=== PATIENT | female | born 1960 | race Caucasian/White ===

== ENCOUNTER → 2017-04-09 | Outpatient (CLI) | payer BC ==
[~2017-04-09] MED LIST: ATOR-22 PO; CARV6.252 PO; DIGO30TA; SACU1TAB7; SPIR25TA PO; TORS5TAB10 PO
--- NOTE | 2017-04-09 16:01 | MAMMOGRAPHY REPORT ---
BILATERAL DIGITAL SCREENING MAMMOGRAM TOMOSYNTHESIS WITH CAD: 04/09/2017 CLINICAL HISTORY: Routine screening. Patient has no complaints. TECHNIQUE: Breast tomosynthesis in addition to standard 2D mammography was performed. Current study was also evaluated with a Computer Aided Detection (CAD) system. COMPARISON: Comparison is made to exams dated: 03/27/2016 mammogram, 07/17/2015 mammogram, 12/21/2014 m ammogram, 11/04/2013 mammogram, 10/12/2012 mammogram, and 08/13/2011 mammogram - [facility]. BREAST COMPOSITION: The tissue of both breasts is almost entirely fatty. FINDINGS: No suspicious masses, calcifications, or areas of architectural distortion are noted in ei ther breast. There has been no significant interval change compared to prior exams. There are stable postsurgical changes in the right breast from prior lumpectomy; linear scar markers denote scars on the right breast. Bilateral benign-appearing calcifications are stable, including grouped calcificat ions in the left upper outer quadrant which are stable dating back to at least the 2012 exam. A pace maker overlies the left pectoralis muscle. IMPRESSION: ACR BI-RADS CATEGORY 2: BENIGN There is no mammographic evidence of malignancy. A 1 year screening mammogram is recommended. The pa tient will receive written notification of the results. Approximately 10% of breast cancers are not detected with mammography. A negative mammographic report should not delay biopsy if a clinically suggestive mass is present. Iraida Woods M.D. /:04/09/2017 10:18:32 Resident Manager: Deidra LAWSON(Ondina)(M), [facility] letter sent: Normal 1/2 BI-RADS Code: ACR BI-RADS Category 2: Benign
== END | disposition home or self-care (01) ==
LOC: C.MAMM 08:06
PROVIDERS: ATTEND Internal Medicine Hematology
DX: Z12.31 Encounter for screening mammogram for malignant neoplasm of breast (principal); Z85.3 Personal history of malignant neoplasm of breast

== ENCOUNTER → 2017-07-08 | Day surgery (SDC) | payer BC ==
[2017-07-02 08:55] VITALS: Ht 167.6 cm; Wt 87.7 kg
[~2017-07-08] VITALS: Ht 167.6 cm; Wt 87.7 kg
[~2017-07-08] MED LIST changes: +CARV12.52 PO; -CARV6.252 PO; -DIGO30TA; +DIGO30TA PO; +DOXY200C PO; -SACU1TAB7; +SACU1TAB7 PO; +SODIUM CHLORIDE 0.9% 500ML 500 ML IV ONE
--- NOTE | 2017-07-08 10:08 | Endo History and Physical ---
History & Physical Date of Service: Jul 08, 2017. Chief Complaint: HX COLON POLYP Referring Physician: DR. COHN History of Present Illness patient with history of large colon polyp Past Surgical History Hx Cardiac Surgery: Yes (CARDIAC CATH-NO STENTS) Hx Internal Defibrillator: Yes (MEDTRONIC) Hx Pacemaker: Yes (MEDTRONIC) Hx Abdominal Surgery: No Hx of Implantable Prosthesis: No Hx Post-Op Nausea and Vomiting: No Hx Cancer Surgery: Yes (RT PARTIAL MASECTOMY WITH LYMPH NODE BIOPSY) Hx Thoracic Surgery: No Hx Orthopedic: No Hx Urinary Tract Surgery: No Family History None Social History Smoking Status: Never Smoker Hx Substance Use: No Hx Alcohol Use: Yes (OCCASIONALLY (2-3 GLASSES OF WINE WEEKLY)) Allergies Coded Allergies: No Known Allergies (Verified , 07/08/17) Current Medications Reported Home Medications Medications Dose Route/Sig Max Daily Dose Days Date Category Dose Instructions Doxycycline (Doxycycline (Rosacea)) 40 Mg Cap 20 Mg PO BID 07/02/17 Reported FINISHING 07/07/17 Entresto 49-51 mg (Sacubitril-Valsartan) 1 Tab Tab 1 Tab PO BID 07/02/17 Reported Coreg (Carvedilol) 12.5 Mg Tab 12.5 Mg PO BID 07/02/17 Reported Aldactone (Spironolactone) 25 Mg Tab 12.5 Mg PO QAM 01/29/17 Reported Digitek (Digoxin) 0.125 Mg Tab 1 Tab PO DAILY AT LUNCH 01/29/17 Reported Torsemide 5 Mg Tab 5 Mg PO 2X/WEEK 04/24/16 Reported Lipitor (Atorvastatin Calcium) 20 Mg Tab 20 Mg PO HS 08/28/10 Reported Vital Signs Weight (Kilograms): 87.73 Height (Feet): 5 Height (Inches): 6 Date Time Temp Pulse Resp B/P (MAP) Pulse Ox O2 Delivery O2 Flow Rate FiO2 07/08/17 10:03 36.5 81 16 112/61 (78) 94 Room Air Physical Exam General Appearance: no apparent distress Respiratory/Chest: Auscultation: breath sounds normal Cardiovascular: Heart Auscultation: RRR Abdomen: Inspection & Palpation: soft Liver: non-tender Assessment and Plan stable for colonoscopy
--- NOTE | 2017-07-08 10:58 | GI REPORT ---
Procedure Date: 07/08/2017 10:09 AM Procedure: Colonoscopy Indications: High risk colon cancer surveillance: Personal history of adenoma (10 mm or greater in size) Medicines: See the Anesthesia note for documentation of the administered medications Complications: No immediate complications. Estimated Blood Loss: Estimated blood loss was minimal. Procedure: Pre-Anesthesia Assessment: - Prior to the procedure, a History and Physical was performed, and patient medications, allergies and sensitivities were reviewed. The patient's tolerance of previous anesthesia was reviewed. - The risks and benefits of the procedure and the sedation options and risks were discussed with the patient. All questions were answered and informed consent was obtained. - Patient identification and proposed procedure were verified prior to the procedure by the physician and the nurse. The procedure was verified in the pre-procedure area. - Pre-procedure physical examination revealed no contraindications to sedation. - After reviewing the risks and benefits, the patient was deemed in satisfactory condition to undergo the procedure. After I obtained informed consent, the scope was passed under direct vision. Throughout the procedure, the patient's blood pressure, pulse, and oxygen saturations were monitored continuously. The scope was introduced through the anus and advanced to the terminal ileum, with identification of the appendiceal orifice and IC valve. The colonoscopy was performed without difficulty. The patient tolerated the procedure well. The quality of the bowel preparation was good. Findings: The perianal and digital rectal examinations were normal. The terminal ileum appeared normal. A 6 mm polyp was found in the ascending colon. The polyp was sessile. The polyp was removed with a cold snare. Resection and retrieval were complete. Verification of patient identification for the specimen was done by the physician and nurse using the patient's name and medical record number. Estimated blood loss was minimal. A 4 mm polyp was found at the hepatic flexure. The polyp was sessile. The polyp was removed with a cold snare. Resection and retrieval were complete. Verification of patient identification for the specimen was done by the physician and nurse using the patient's name and medical record number. Estimated blood loss was minimal. The exam was otherwise without abnormality on direct and retroflexion views. Impression: - The examined portion of the ileum was normal. - One 6 mm polyp in the ascending colon, removed with a cold snare. Resected and retrieved. - One 4 mm polyp at the hepatic flexure, removed with a cold snare. Resected and retrieved. - The examination was otherwise normal on direct and retroflexion views. Recommendation: - Await pathology results. - Discharge patient to home. Barry Ortega M.D. Barry Ortega MD 07/08/2017 10:58:23 AM This report has been signed electronically. Note Initiated On: 07/08/2017 10:09 AM I attest to the content of the Intraoperative Record and orders documented therein, exceptions below
--- NOTE | 2017-07-08 10:58 | Discharge Instructions ---
Endoscopy Patient Instructions Date / Procedure(s) Performed Jul 08, 2017. Colonoscopy Allergy Information Coded Allergies: No Known Allergies (Verified , 07/08/17) Discharge Date / Findings Jul 08, 2017. Two colon polyps removed Medication Instructions Stopped Medication(s): ALDACTONE LAST DOSE 07/07/17 Provider Instructions Activity Restrictions - No exercising or heavy lifting for 24 hours. - Do not drink alcohol the day of the procedure. - Do not drive a car or operate machinery until the day after the procedure. - Do not make any important decisions or sign important papers in 24 hours after the procedure. Following Day: - Return to full activity which may include returning to work/school. Diet Start your diet with liquids and light foods (jello, soup, juice, toast). Then eat your usual diet if not nauseated. Treatment For Common After Affects For mild abdominal pain, bloating, or excessive gas: - Rest - Eat lightly - Lie on right side Follow-Up Information Follow-up with DR. COHN as scheduled Anesthesia Information What You Should Know You have had a procedure that required some medicine to reduce anxiety and discomfort. This treatment is called moderate sedation. After receiving the treatment, you may be sleepy, but you will be able to breathe on your own. The effects of the treatment may last for several hours. Follow these instructions along with Activity/Diet recommendations noted above: * Do NOT do anything where dizziness or clumsiness would be dangerous. * Rest quietly at home today, then you can be up and about tomorrow. * Have a responsible person stay with you the rest of today. * You may have had an I.V. today. If so, you may take the dressing off later today. Recommendations Call your doctor if: * Trouble breathing * Continuous vomiting for more than 24 hours * Temperature above 101 degrees * Severe abdominal pain or bloating * Pain not relieved by pain medicine ordered * There is increased drainage or redness from any incision * A large amount of rectal bleeding greater than 2-3 tablespoons. (If you had a polyp/s removed or have hemorrhoids, a small amount of blood - from the rectum is to be expected.) * You have any unanswered questions or concerns. IN THE EVENT OF A SERIOUS EMERGENCY, GO TO THE NEAREST EMERGENCY ROOM Your discharge instructions were prepared by provider Barry Ortega. Patient Instructions Signature Page Mariana Santos Patient (or Guardian) Signature/Date: I have read and understand the instructions given to me by my caregivers. Caregiver/RN/Doctor Signature/Date: The above-named patient and/or guardian has received patient instructions on this date. + Original Patient Signature Page (only) stays with chart. Please make copy for patient.
--- NOTE | 2017-07-08 11:25 | Anesthesiology Progress Note ---
Anesthesia Post Op Note Date & Time Jul 08, 2017 at 11:25 Vital Signs Pain Intensity: 0 Vital Signs Past 12 Hours Date Time Temp Pulse Resp B/P (MAP) Pulse Ox O2 Delivery O2 Flow Rate FiO2 07/08/17 11:16 68 20 108/65 (79) 95 Room Air 07/08/17 11:01 65 18 107/63 (78) 97 Room Air 07/08/17 10:03 36.5 81 16 112/61 (78) 94 Room Air Notes Mental Status: alert / awake / arousable, participated in evaluation Pt Amnestic to Procedure: Yes Nausea / Vomiting: adequately controlled Pain: adequately controlled Airway Patency, RR, SpO2: stable & adequate BP & HR: stable & adequate Hydration State: stable & adequate Anesthetic Complications: no major complications apparent Awake. Doing well. VSS.
[2017-07-08 11:27] VITALS: BP 106/62; PULSE 66; O2SAT 97
== END | disposition home or self-care (01) ==
LOC: C.GI 09:09
PROVIDERS: ATTEND Internal Medicine Gastroenterology
DX: Z12.11 Encounter for screening for malignant neoplasm of colon (principal); Z86.010 Personal history of colon polyps; D12.2 Benign neoplasm of ascending colon; D12.3 Benign neoplasm of transverse colon; Z79.899 Other long term (current) drug therapy

== ENCOUNTER 2022-04-02 05:08 | Observation (INO) ==
--- NOTE | 2022-03-22 11:39 | PAT Medication Instructions ---
Medication Instructions Date of Service March 22, 2022 Home Medications carvedilol 25 mg tablet 25 mg PO BID cholecalciferol (vitamin D3) 25 mcg (1,000 unit) tablet (Vitamin D3) 25 mcg PO QAM cyanocobalamin (vitamin B-12) 1,000 mcg tablet (Vitamin B-12) 1,000 mcg PO QDL digoxin 125 mcg (0.125 mg) tablet (Digitek) 125 mcg PO QDL food supplemt, lactose-reduced (Protein Nutritional Shake oral liquid) 1 ea PO 2XWK metformin 500 mg tablet,extended release 24 hr 500 mg PO BID metronidazole 0.75 % topical cream 1 applic topical BID psyllium husk 3.4 gram/5.4 gram oral powder (Metamucil) 1 tbsp PO HS sacubitril 97 mg-valsartan 103 mg tablet (Entresto) 1 tab PO BID spironolactone 25 mg tablet 12.5 mg PO QAM torsemide 5 mg tablet 5 mg PO Q3D triamcinolone acetonide 0.1 % topical cream 1 applic topical BID PRN Rash ezetimibe 10 mg tablet 10 mg PO HS rosuvastatin 20 mg tablet (Crestor) 20 mg PO HS STOP taking 24 hours before surgery triamcinolone acetonide 0.1 % topical cream 1 applic topical BID PRN Rash DO NOT take the morning of surgery sacubitril 97 mg-valsartan 103 mg tablet (Entresto) 1 tab PO BID (unless prescriber advised to continue) cholecalciferol (vitamin D3) 25 mcg (1,000 unit) tablet (Vitamin D3) 25 mcg PO QAM cyanocobalamin (vitamin B-12) 1,000 mcg tablet (Vitamin B-12) 1,000 mcg PO QDL food supplement, lactose-reduced (Protein Nutritional Shake oral liquid) 1 ea PO 2XWK metformin 500 mg tablet,extended release 24 hr 500 mg PO BID metronidazole 0.75 % topical cream 1 applic topical BID spironolactone 25 mg tablet 12.5 mg PO QAM torsemide 5 mg tablet 5 mg PO Q3D Take morning of surgery With a small sip of water, OTHERWISE NOTHING TO EAT OR DRINK AFTER MIDNIGHT: carvedilol 25 mg tablet 25 mg PO BID digoxin 125 mcg (0.125 mg) tablet (Digitek) 125 mcg PO QDL Take evening before surgery carvedilol 25 mg tablet 25 mg PO BID metformin 500 mg tablet,extended release 24 hr 500 mg PO BID metronidazole 0.75 % topical cream 1 applic topical BID psyllium husk 3.4 gram/5.4 gram oral powder (Metamucil) 1 tbsp PO HS ezetimibe 10 mg tablet 10 mg PO HS rosuvastatin 20 mg tablet (Crestor) 20 mg PO HS Other Notes If you have any questions please call us at [phone] or [phone] or [phone] or [phone]
--- NOTE | 2022-03-27 11:08 | Anesthesiology Consultation ---
Date of Service March 27, 2022 Assessment & Plan (1) Encounter for pre-operative examination: - check BSG am DOS. - Case discussed with Dr. Hernandez who advised pt acceptable to proceed with plan for neuraxial anesthesia to be definitively determined by anesthesiologist assigned to case DOS. Bolus to anesthesiologist evaluation and discretion DOS. - nonischemic cardiomyopathy, EF 28%: cleared by both cardiology practices as below: "if she is to be NPO beyond 12 hours, please call us and we will alter route of administration. If local anesthetic is to be used, please avoid epinephrine or epinephrine-like products..." Surgeon's office made aware of both cardiology pre-op notations. - ICD: Medtronic - limb restriction: right arm. - [facility] cardiology 03/20/22: "...nonischemic cardiomyopathy, chronic systolic heart failure...continues to follow with Dr. Laine Longoria of the advance heart failure program at the [facility] with most recent visit having been on 02/13/22...2016...exertional shortness of breath and was found to have a left bundle branch block and severe LV systolic dysfunction...cardiac catheterization revealed no significant CAD...persisted despite placement of a biventricular pacemaker defibrillator, with a therapeutic cardiac resynchronization therapy...EF 28%...I think she is optimized volume status standpoint, and although she would be a increased risk for perioperative cardiac complication...reasonable to consider hip replacement surgery...I do not think that stress testing would help us risk stratify her given her past history as noted..." - [facility] cardiology 02/13/22: "...dilated cardiomyopathy...LBBB...biventricular automatic implantable cardioverter defibrillator in situ...stable exertional dyspnea (1 block, 1 FOS with a cane)...no ICD discharges no syncope...NYHA functional class to be II...ACC/AHA Stage C heart failure...BP at home runs in the 90's/60's...clinically euvolemic and well compensated...stable from the cardiac standpoint for hip surgery...if she is to be NPO beyond 12 hours, please call us and we will alter route of administration if local anesthetic is to be used, please avoid epinephrine or epinephrine-like products..." - COVID screening: Per assessment on 03/27/2022: Travel screen negative, no known COVID-19 positive contacts or current COVID-19 related symptoms in past 2 weeks. Pt vaccinated. Surgeon arranging preop COVID testing, scheduled 03/29/2022. Awaiting results. Chart Review Chart Review: Acceptable Risk for Surgery and Patient seen in Pre Admission Testing Teaching & Discussion Pre-Anesthesia Teaching/Discussion Notes: Instructed NPO after midnight before surgery, except medications with 15 cc of water. Medication instructions provided according to the PAT guidelines. History Surgery Operation Date: 04/02/22 12:40 Proposed Procedures p Right Total Hip Arthroplasty - Anton Goldberg MD Height/Weight Height: 5 ft 6 in Weight: 86.4 kg Allergies Allergy/AdvReac Type Severity Reaction Status Date / Time No Known Allergies Allergy U Verified 03/22/22 09:24 Medications Home Medications Medication Instructions Recorded Confirmed Last Taken carvedilol 25 mg tablet 25 mg PO BID 09/13/19 03/22/22 09/21/19 cholecalciferol (vitamin D3) 25 25 mcg PO QAM 09/13/19 03/22/22 09/20/19 mcg (1,000 unit) tablet (Vitamin D3) cyanocobalamin (vitamin B-12) 1,000 mcg PO QDL 09/13/19 03/22/22 09/20/19 1,000 mcg tablet (Vitamin B-12) digoxin 125 mcg (0.125 mg) tablet 125 mcg PO QDL 09/13/19 03/22/22 09/20/19 (Digitek) food supplemt, lactose-reduced 1 ea PO 2XWK 09/13/19 03/22/22 09/18/19 (Protein Nutritional Shake oral liquid) metformin 500 mg tablet,extended 1,000 mg PO BID 09/13/19 03/27/22 09/20/19 release 24 hr metronidazole 0.75 % topical cream 1 applic topical BID 09/13/19 03/22/22 09/20/19 psyllium husk 3.4 gram/5.4 gram 1 tbsp PO HS 09/13/19 03/22/22 09/19/19 oral powder (Metamucil) sacubitril 97 mg-valsartan 103 mg 1 tab PO BID 09/13/19 03/22/22 09/20/19 tablet (Entresto) spironolactone 25 mg tablet 12.5 mg PO QAM 09/13/19 03/22/22 09/20/19 torsemide 5 mg tablet 5 mg PO Q3D 09/13/19 03/22/22 09/18/19 triamcinolone acetonide 0.1 % 1 applic topical BID PRN Rash 09/13/19 03/22/22 09/19/19 topical cream ezetimibe 10 mg tablet 10 mg PO HS 03/22/22 03/22/22 Unknown rosuvastatin 20 mg tablet (Crestor) 20 mg PO HS 03/22/22 03/22/22 Unknown Wheeled Walker #1 ea 03/25/22 03/25/22 Unknown Shower Chair #1 ea 03/27/22 Unknown Roberto Hose #1 ea 03/27/22 Unknown Wheeled Walker #1 ea 03/27/22 Unknown Past Medical History Medical History (Updated 03/27/22 @ 15:34 by Beti Jean PA-C) Diabetes mellitus, type 2 NIDDM Heart failure d/t chemotherapy; 28% EF---follow with [facility] Dr. Nicholson and [facility] Dr. Laine Longoria History of cervical dysplasia History of right breast cancer diagnosed 2010 - right breast --sx/chemo/radiation=right arm restriction Hyperlipidemia ICD (implantable cardioverter-defibrillator) in place 08/2015 @ [facility]--medtronic LBBB (left bundle branch block) present since 2015 Limb alert care status right arm. Mitral regurgitation mild Non-ischemic cardiomyopathy EF 28% Patient denies h/o stroke, seizures, heart attack, HTN, blood clots or blood transfusions. Exercise / Class Metabolic Activity III < 4 Walking/Shop/Light housework (ambulates with cane, denies CP or SOB with usual activities) Past Family History Family History Father Family history of diabetes mellitus Grandfather (Maternal) Spinal cord cancer Other No family history of adverse response to anesthesia Past Surgical History Surgical History History of cardiac cath 2014 @ [facility]--no stents - follows Dr. Nicholson History of colonoscopy History of colonoscopy with polypectomy History of cryosurgery to cervix for dysplagia - precancerous cells History of lumpectomy of right breast partial with 14 lymph node removal - 2010 History of removal of Port-a-Cath History of right breast biopsy malignant History of tonsillectomy and adenoidectomy History of tooth extraction History of wisdom tooth extraction Past Anesthesia History No Hx of Anesthesia Complications and No Family Hx of Anesthesia Complications History of PONV No Hx of PONV and No Hx of Motion Sickness Social History Smoking Status: Never smoker Do You Dip or Chew Tobacco: No Hx Alcohol Use: Yes Alcohol type: wine alcohol intake frequency: a few times a month Hx Substance Use: No substance use type: does not use Review of Systems Loud snoring per , denies witnessed apneas. Patient denies chest pain, shortness of breath, dyspnea on exertion, reflux, fever, chills, cough, wheezing, or palpitations. Physical Exam Vital Signs Vitals BP 106/69 P 77 TEMP 98.7 SP02 96% on RA RESP 17 Physical Full cervical extension range of motion without pain TMD 3.5 finger breadths Mallampati Score 3 Dentition: intact, denies chipped or loose teeth, caps/crowns, implants or bridges Lungs: normal respiratory effort. Clear throughout to auscultation, no adventitious breath sounds Cardiac: regular rate and rhythm, 2/6 systolic murmur (consistent from cardio visits per records) Carotid arteries: negative bruit bilat Lab Results Anesthesia Preop Results Results Anesthesia Widget: PT 10.6 Seconds (9.0-12.0) 03/27/22 PTT 27.2 Seconds (21.0-31.0) 03/27/22 INR 1.0 (0.9-1.1) 03/27/22 HA1c 6.7 % (4.5-5.6) H 03/27/22 Blood Type A Positive 03/27/22 Antibody Screen NEGATIVE 03/27/22 Testing Laboratory Results 02/28/2022 WBC: 7.1 H/H: PLATELETS: 270 SODIUM: 137 POTASSIUM: 4.7 CHLORIDE: 101 CO2: 24 BUN: 10 CREATININE: 0.7 GLUCOSE: 184 Electrocardiogram Date: 02/13/22 Atrial sensed ventricular paced rhythm, rate 77 bpm Chest X-Ray Date: 03/27/22 Pacemaker defibrillator is seen. The cardiomediastinal silhouette is normal. The lungs are clear. No evidence of pleural effusion or pneumothorax. IMPRESSION: No acute chest disease. Echocardiogram Date: 09/14/21 EF 28% Grade I diastolic dysfunction Severely enlarged LV Mild mitral regurgitation Mild aortic valve sclerosis without aortic stenosis No evidence of pulmonary hypertension Other Testing ICD report 03/13/22 Medtronic Atrial sensed and BiV paced 0% atrial paced, 98% BiV paced 0 mode switch episodes 1 VT nonsustained episodes of which longest is 2 seconds with ventricular rate of 224 bpm Mode: DDD at 171 bpm
[2022-04-02] MEDS ORDERED: ACETAMINOPHEN 500 MG TAB PO SCH (06:00)
[2022-04-02] MEDS ORDERED: LR 15ML/HR IV SCH (06:00)
[2022-04-02] MEDS ORDERED: METOCLOPRAMIDE HCL 10 MG TABLET PO SCH (06:00)
[2022-04-02] MEDS ORDERED: CeleBREX 200 MG CAP PO SCH (06:00)
[2022-04-02] MEDS ORDERED: TRANEXAMIC ACID 1,000 MG **IV Pre-op IV SCH (06:00)
[2022-04-02] MEDS ORDERED: ceFAZolin 2000MG 2,000 MG/15 ML SYR IV SCH (06:00)
[2022-04-02] MEDS ORDERED: FAMOTIDINE 20 MG TAB PO SCH (06:00)
[2022-04-02] MEDS ORDERED: LR 60ML/HR IV SCH (06:00)
[2022-04-02] MEDS ORDERED: Scopolamine 1 MG TDSY TD SCH (06:00)
[2022-04-02] MEDS ORDERED: BUPIVACAINE 0.5 % 5 MG/1 ML PF 10ML VIAL ONE (06:22)
[2022-04-02] MEDS ORDERED: MIDAZOLAM HCL 1 MG/ML 2ML VIAL ONE (06:34)
[2022-04-02] MEDS ORDERED: MoRPHine SULFATE PF 1 MG/ML 10 ML AMP/VIAL ONE (06:34)
[2022-04-02] MEDS ORDERED: ePHEDrine sulfate 50 MG/ML AMP IV PRN ×2 (06:35→06:59)
[2022-04-02] MEDS ORDERED: ATROPINE SULFATE 0.1 MG/ML 10ML SYR IV PRN (06:35)
[2022-04-02] MEDS ORDERED: ONDANSETRON INJ 2 MG/ML 2 ML VIAL IV PRN ×3 (06:35→10:10)
[2022-04-02] MEDS ORDERED: fentaNYL citrate 100 MCG/2 ML VIAL IV PRN (06:35)
[2022-04-02] MEDS ORDERED: EPINEPHrine INJ 1 MG/ML AMP ONE (06:35)
[2022-04-02] MEDS ORDERED: BUPIVACAINE 0.5 % 5 MG/1 ML MPF 30ML VIAL ONE ×2 (06:36→07:14)
[2022-04-02] MEDS ORDERED: MEPERIDINE HCL 25 MG/ML CARP/VIAL IV PRN (06:59)
[2022-04-02] MEDS ORDERED: diphenhydrAMINE 50 MG/ML VIAL IV PRN (06:59)
[2022-04-02] MEDS ORDERED: KETOROLAC 30 MG/ML VIAL IV PRN (06:59)
[2022-04-02] MEDS ORDERED: MoRPHine SULFATE PF 1 MG/ML 10 ML AMP/VIAL INT SPINAL ONE (06:59)
[2022-04-02] MEDS ORDERED: NALBUPHINE HCL INJ 10 MG/ML AMP IV PRN (06:59)
[2022-04-02] MEDS ORDERED: LACTATED RINGER'S 500 ML IV PRN (06:59)
[2022-04-02] MEDS ORDERED: NALOXONE HCL 0.4 MG/1 ML VIAL/CARP IV PRN ×2 (06:59→10:10)
[2022-04-02] MEDS ORDERED: NALOXONE HCL 0.08 MG in SYRINGE 1.8 ML IV PRN (06:59)
[2022-04-02] MEDS ORDERED: NALOXONE HCL 1 MG in SODIUM CHLORIDE 0.9% 1000ML 1,000 ML IV PRN (06:59)
--- NOTE | 2022-04-02 06:59 | History & Physical Bridge Note ---
Date of Service April 02, 2022 History & Physical Bridge Note I have examined the patient, reviewed the History & Physical and in the interval since the performance of the History & Physical I have noted the following changes of clinical significance: no changes noted
[2022-04-02] MEDS ORDERED: SODIUM CHLORIDE 0.9% 1000ML 1,000 ML IV SCH (07:00)
[2022-04-02] MEDS ORDERED: NO NARCOTICS OR SEDATIVES SCH (07:00)
[2022-04-02] MEDS ORDERED: DC INTRASPINAL MORPHINE SCH (07:00)
[2022-04-02] MEDS ORDERED: PROPOFOL IV EMULSION 10 MG/ML 20 ML VIAL IV ONE (07:15)
[2022-04-02] MEDS ORDERED: KETAMINE 50 MG/5 ML SYRINGE ONE (07:17)
[2022-04-02] MEDS ORDERED: ONDANSETRON INJ 2 MG/ML 2 ML VIAL ONE (07:17)
[2022-04-02] MEDS ORDERED: PHENYLEPHRINE HCL 10 MG/ML VIAL ONE (07:45)
--- NOTE | 2022-04-02 08:58 | Operative Report ---
PG Post Operative Report Pre & Post Diagnosis Operation Date: 04/02/22 07:00 Pre-Op Diagnosis: Right Hip Advanced Degenerative Joint Disease Post-Op Diagnosis: Right Hip Advanced Degenerative Joint Disease I identified the patient and participated in the time-out.: Yes Procedure Operation Date: 04/02/22 07:00 Actual Procedures p Right Total Hip Arthroplasty--Uncemented(Right) - Anton Goldberg MD Surgeon Anton Goldberg MD Civil Engineer In Training Naga Huerta PA-C Estimated Blood Loss 100 Findings Consistent with Post-Op Diagnosis Operative findings revealed eventrated DJD. She had a grade 4 [id number] disease of the femoral head and acetabulum. She had osteophytes particularly in the femoral head. Acetabular osteophytes. Moderate-sized joint effusion. Fluids 750 cc Specimens Right femoral head sent for pathology Drains None Anesthesia Type Spinal MAC Complications none Disposition Accompanied Patient To Recovery: Yes Indications Patient is a 61-year-old female who has a history of breast cancer and undergone chemotherapy and developed a nonischemic cardiomyopathy. Over the past 2 years she developed increasing right hip pain discomfort which has become disabling for her. X-rays show advanced hip arthritis. She was medically optimized and elected proceed with total hip arthroplasty. Description of Procedure Operative implants consist of: 1 Biomet G7 size 52 mm acetabular shell. 2. Nicholson hole investment consultant. 3. 6.5 cancellous acetabular screws 1 of 35 mm length 125 mm length. 4. Highly cross-linked polyethylene liner with a 52 mm outer diameter and 36 mm diameter. 5. DePuy Corail size 10 KLA femoral stem. 6. +5/36 mm ceramic articular ball. The patient was taken to the operating, identified, placed on the operating table supine position protectors were properly padded. IV antibiotics tried by anesthesia team. A spinal anesthetic and been implemented holding area. Koo cath was placed in sterile fashion. The patient then placed in the left lateral cubitus position. An axillary roll was placed. A Stulberg hip positioner was used for positioning. The right hip and leg were then prepped and draped in usual sterile fashion. A posterior lateral approach of the right hip was then performed to a curvilinear incision centered over the greater trochanter. Sharp dissection Through subcutaneous tissue down to level the IT band gluteal fascia the IT band gluteal fascia incised longitudinally in line with skin incision. The underl inga greater bursa was excised. The piriformis and external rotators were tagged and taken off the posterior aspect hip joint capsule. Great care was taken throughout the procedure protect the sciatic nerve at all times. The hip was internally rotated and dislocated. A femoral neck osteotomy cut was made with a Final Cut about 14 mm above the lesser trochanter. Femoral head was removed and sent for pathology. The femur was retracted anteriorly. Attention drawn the acetabulum. The acetabular labrum was excised. Pulmonary fat was excised. Sequential reaming the acetabular was then performed beginning with size 43 and progressing up to 51. I reamed a little bit with a 52 reamer and then placed a 52 mm Biomet G7 acetabular shell in about 40 degrees lateral opening and 20 degrees of anteversion. It was fixed with two 6.5 cancellous acetabular screws. Trial liner was placed. Attention drawn the femur. The proximal femur was entered with a [employer] cutter followed by canal finder. I then broached begin the size 8 and progressing up to a 10. The distal fit with the tendon was pretty tight and I did not think I could probably [phone] in. We elected to stop here. Calcar reamer was used smooth and off the calcar. The hip was trialed. The +5 articular ball provide full stability and full extension external rotation and flexion to 90 degrees internal Tatian over 50 degrees. Soft tissue tension and leg length seemed appropriate. We elect to place these implants. Nupathe all trial implants were removed. An apex hole investment consultant was placed. Highly cross-linked polyethylene liner was placed. A size 10 KLA femoral stem was impacted in position. +5/36 mm ceramic articular ball was placed. Hip was located once again found to be stable. Attention drawn toward closing. Wound was irrigated scopes amounts of pulsatile lavage solution. We did inject locally with 60 cc of half percent Marcaine. We used plain Marcaine with no epinephrine. The posterior capsule and external rotators were then repaired through drill holes in the posterior trochanter with #2 Tycron suture but the IT band gluteal fascia then closed in 1 PDS suture running fashion for subcutaneous tissue then closed with 2 layers the deep layer #1 Vicryl suture and subcutaneous tissues with 2-0 Dexon suture in a buried interrupted fashion. Skin was closed skin bya. Leg was then cleaned and dried a sterile dressing was Xeroform, sterile 4 x 4's, ABD pad, foam tape was applied. The patient then transferred to the recovery room in stable condition. Patient tolerated procedure well and there were no complications. Naga Huerta, my physician ssn/ssbn assistant navigator, was present for the entire procedure. His assistance was required for proper patient positioning, prepping and draping, surgical exposure, retraction, perform the technical details the operation, placement of the implants, closure of the incision, placement of sterile bandage. I attest to the content of the Intraoperative Record and any orders documented therein. Any exceptions are noted below.
[2022-04-02] MEDS ORDERED: DOCUSATE SODIUM/SENNA 50/8.6MG TAB PO SCH (10:10)
[2022-04-02] MEDS ORDERED: bisacodyL 10 MG SUPP PR PRN (10:10)
[2022-04-02] MEDS ORDERED: PHARMACY GLYCEMIC MGMT CONSULT PRN (10:10)
[2022-04-02] MEDS ORDERED: METOCLOPRAMIDE HCL INJ 5 MG/ML 2 ML VIAL IV PRN (10:10)
[2022-04-02] MEDS ORDERED: HYDROmorphone INJ 0.5 MG/0.5 ML SYR IV PRN (10:10)
[2022-04-02] MEDS ORDERED: traMADol HCL 50 MG TABLET PO PRN (10:10)
[2022-04-02] MEDS ORDERED: MAGNESIUM HYDROXIDE SUSP 30 ML UDC PO PRN (10:10)
[2022-04-02] MEDS ORDERED: [UNRECOGNIZED DRUG - OTHER] PO SCH (10:10)
[2022-04-02] MEDS ORDERED: diphenhydrAMINE Capsule 25 MG CAP PO PRN (10:10)
[2022-04-02] MEDS ORDERED: ALUMINUM/MAGNESIUM SUSP 30 ML UDC PO PRN (10:10)
[2022-04-02] MEDS ORDERED: TRIAMCINOLONE ACET 0.1% CR 15 GM TUBE TOP PRN (10:10)
--- NOTE | 2022-04-02 10:38 | Cardiology Consultation ---
Date of Consultation April 02, 2022 Assessment & Plan (1) S/P hip replacement: (2) Non-ischemic cardiomyopathy: (3) Biventricular automatic implantable cardioverter defibrillator in situ: (4) Chronic systolic (congestive) heart failure: Plan Patient seen in post op setting. Doing well. Tolerated surgery. Monitor CBC and BMP in the AM. Vital signs stable. She already took carvedilol and digoxin this morning. Resume cardiac meds today today/tonight including ASA, Crestor/Zetia, PM dose of Entresto, PM dose of carvedilol. Resume digoxin tomorrow AM along with diuretics including spironolactone 12.5 mg and torsemide 5 mg. Monitor fluid status given LV dysfunction. Gentle hydration only. Incentive spirometry encouraged. DVT proph and pain management per ortho. Case discussed with Dr. Le. Will follow. Supervising Physician Co-Signing Physician Notes Patient seen exam at the bedside. Admitted for elective hip surgery. No complications reported. Feeling well postoperatively. Denies chest pain or shortness of breath. Received a.m. medications as noted above. PE: VSS. Gen: NAD, AAO x 3. Heart: Regular rhythm, normal S1-S2. No murmur. Lungs: Clear bilateral, no rales, rhonchi, wheeze. Extremities: + Compression stockings bilateral, no edema. A/P: Agree with above PA-C history, physical exam, assessment and plan. Resume cardiac medications including aspirin, Crestor, Zetia, Entresto, and carvedilol. Diuretics including Aldactone and torsemide scheduled in a.m. 04/03/2022. Monitor volume status in the setting of underlying LV systolic dysfunction. History of Present Illness Reason for Consultation: Post op cardiac care; S/P right hip replacement; history of non ischemic cardiom yopathy; BIV AICD Requesting Physician: Dr. Goldberg Attending Physician: Anton Goldberg MD History of Present Illness Patient is a complex 61 year old female known to [facility] (Dr. 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 Cardiac cath without significant coronary disease. She underwent BIV AICD implant. Despite medical therapies, LVEF remained stable around 30% over the last 6 years. She also follows with Advanced heart failure clinic at [facility], Dr. Laine Longoria. She was seen in the cardiology clinic in March for preop management with Dr. Nicholson. [place] to be optimized from a cardiac standpoint for surgery. This morning she underwent right hip replacement with Dr. Goldberg and tolerated surgery. Cardiology was consulted for post op care/management and to monitor fluid status. At time of consult, patient feeling drowsy but well. No pain currently. No CP, SOB or cough. VS stable. No dizziness or lightheadedness. She reported took her carvedilol and digoxin this morning. Allergies Allergy/AdvReac Type Severity Reaction Status Date / Time No Known Allergies Allergy U Verified 04/02/22 05:29 Home Medications Medication Instructions Recorded Confirmed Type carvedilol 25 mg tablet 25 mg PO BID 09/13/19 04/02/22 History cholecalciferol (vitamin D3) 25 25 mcg PO QAM 09/13/19 04/02/22 History mcg (1,000 unit) tablet (Vitamin D3) cyanocobalamin (vitamin B-12) 1,000 mcg PO QDL 09/13/19 04/02/22 History 1,000 mcg tablet (Vitamin B-12) digoxin 125 mcg (0.125 mg) tablet 125 mcg PO QDL 09/13/19 04/02/22 History (Digitek) food supplemt, lactose-reduced 1 ea PO 2XWK 09/13/19 04/02/22 History (Protein Nutritional Shake oral liquid) metformin 500 mg tablet,extended 1,000 mg PO BID 09/13/19 04/02/22 History release 24 hr metronidazole 0.75 % topical cream 1 applic topical BID 09/13/19 04/02/22 History psyllium husk 3.4 gram/5.4 gram 1 tbsp PO HS 09/13/19 04/02/22 History oral powder (Metamucil) sacubitril 97 mg-valsartan 103 mg 1 tab PO BID 09/13/19 04/02/22 History tablet (Entresto) spironolactone 25 mg tablet 12.5 mg PO QAM 09/13/19 04/02/22 History torsemide 5 mg tablet 5 mg PO Q3D 09/13/19 04/02/22 History triamcinolone acetonide 0.1 % 1 applic topical BID PRN Rash 09/13/19 04/02/22 History topical cream ezetimibe 10 mg tablet 10 mg PO HS 03/22/22 04/02/22 History rosuvastatin 20 mg tablet (Crestor) 20 mg PO HS 03/22/22 04/02/22 History Wheeled Walker #1 ea 03/25/22 03/25/22 Rx Shower Chair #1 ea 03/27/22 Rx Roberto Hose #1 ea 03/27/22 Rx Wheeled Walker #1 ea 03/27/22 Rx acetaminophen 500 mg capsule 1,000 mg PO TID Pain 30 days #180 03/31/22 04/02/22 Rx caps aspirin 81 mg tablet,delayed 81 mg PO BID 45 days #90 tabs 03/31/22 04/02/22 Rx release (Kandace Low Dose Aspirin) ketorolac 10 mg tablet 10 mg PO Q6 Pain 5 days #20 tabs 03/31/22 04/02/22 Rx ondansetron HCl 4 mg tablet 4 mg PO Q6 PRN nausea #20 tabs 03/31/22 04/02/22 Rx sennosides 8.6 mg-docusate sodium 1 tab-cap PO DAILY #14 tabs 03/31/22 04/02/22 Rx 50 mg tablet (Senokot-S) tramadol 50 mg tablet 50 - 100 mg PO Q6H PRN pain #40 03/31/22 04/02/22 Rx tabs Patient History Medical History (Updated 04/02/22 @ 10:44 by Guerita Alvarez PA-C) Diabetes mellitus, type 2 NIDDM Heart failure d/t chemotherapy; 28% EF---follow with [facility] Dr. Nicholson and [facility] Dr. Laine Longoria History of cervical dysplasia History of right breast cancer diagnosed 2010 - right breast --sx/chemo/radiation=right arm restriction Hyperlipidemia ICD (implantable cardioverter-defibrillator) in place 08/2015 @ [facility]--medtronic LBBB (left bundle branch block) present since 2015 Limb alert care status right arm. Mitral regurgitation mild Non-ischemic cardiomyopathy EF 28% Surgical History (Updated 04/02/22 @ 10:44 by Guerita Alvarez PA-C) History of cardiac cath 2014 @ [facility]--no stents - follows Dr. Nicholson History of colonoscopy History of colonoscopy with polypectomy History of cryosurgery to cervix for dysplagia - precancerous cells History of lumpectomy of right breast partial with 14 lymph node removal - 2010 History of removal of Port-a-Cath History of right breast biopsy malignant History of tonsillectomy and adenoidectomy History of tooth extraction History of wisdom tooth extraction Family History Father Family history of diabetes mellitus Grandfather (Maternal) Spinal cord cancer Other No family history of adverse response to anesthesia Social History Smoking Status: Never smoker Second Hand Exposure: Yes ( smoked); Do You Dip or Chew Tobacco: No; Tobacco Cessation Education Requested by Patient: No Hx Alcohol Use: Yes Alcohol type: wine and hard liquor Hx Substance Use: No Preferred Language: Guinean Communication Ability: Effective Data Entry Machine Operator Required: No Beliefs That Will Affect Care: None Current Living Situation: Spouse Other Information That Helps Us Care for You: No Feels Safe at Home: Yes Safety Concerns: Feels Safe At This Time Assistive Devices: Raised Toilet Seat and Walker Review of Systems 2 Review of Systems: All systems reviewed & are unremarkable except as noted in HPI & below Physical Exam Constitutional: WD/WN, vitals as above well developed; no acute distress Respiratory: normal respiratory effort, lungs clear to auscultation Cardiovascular: Rate/Rhythm: regular rate and regular rhythm Heart Sounds: normal S1 and normal S2; no murmur Vessels: no JVD Extremities: no edema Neurologic: PERRL, EOMI, accommodation nl, no face palsy, no dysarthria Psychiatric: A+Ox3, euthymic affect Results & Data ([facility]) Vital Signs (Past 12 Hours) Vital Signs Temp Pulse Pulse Resp BP Pulse Ox O2 Del Method 04/02/22 09:50 53 L 17 114/68 96 Room Air 04/02/22 09:35 36.4 C L 52 L 15 103/65 94 Room Air 04/02/22 09:25 58 L 15 110/62 94 Room Air 04/02/22 09:15 36.4 C L 57 L 13 111/62 96 Room Air 04/02/22 09:05 59 L 16 106/58 L 92 Room Air 04/02/22 08:55 61 15 98/63 L 95 Oxymask 04/02/22 08:45 36.7 C 67 14 99/52 L 95 Oxymask 04/02/22 05:34 36.8 C 76 20 132/81 96 Room Air 04/02/22 05:34 Room Air O2 Flow Rate 04/02/22 09:50 04/02/22 09:35 04/02/22 09:25 04/02/22 09:15 04/02/22 09:05 04/02/22 08:55 5 04/02/22 08:45 5 04/02/22 05:34 04/02/22 05:34 Laboratory Results Intake and Output 04/01/22 04/02/22 04/02/22 22:59 06:59 14:59 Intake Total 850 / 850 Output Total 180 / 180 Balance 670 / 670 Intake: IV 0 / 0 Lactated Ringer's 1,000 ml @ 15 0 / 0 mls/hr IV .Q24H [facility] Rx#: [id number] IV Perioperative 850 / 850 Output: Estimated Blood Loss 100 / 100 Urine Amount (Catheter) 80 / 80 Koo/Indwelling 80 / 80 Other: Weight 84.6 kg Weight Measurement Method Standing Scale Diagnostic Findings Laboratory Results POC Glucose 137 mg/dl (70-99) H 04/02/22 08:52 SARS-CoV-2, RNA, NAAT NEGATIVE (NEGATIVE) 04/02/22 Unknown Echo report reviewed from [facility], dated Aug 2021: Interpretation Summary The examination is adequate to evaluate the referral indication. The left ventricular cavity size is severely enlarged. There is severe diffuse left ventricular hypokinesis. The left ventricular systolic function is severely reduced. Calculated LV ejection Fraction = 28% (bi-plane method of discs). The left ventricular diastolic function is mildly abnormal (grade I). Mild mitral regurgitation is present. Mild aortic valve sclerosis is present. Aortic stenosis is absent. There is no evidence of pulmonary hypertension. Compared to the previous study performed 09/25/2020, there has been a subtle increase in the left ventricular end-diastolic dimension and left ventricular end-diastolic volume measurements. The previously reported severe left ventricular systolic dysfunction persists. Zettaset BiV AICD interrogation reviewed from February 2022: Appropriate battery longevity of 2.5 years; 0% atrial paced, 98% BIV paced. No recent arrhythmias or shocks. Medications Administered Medications carvedilol 25 mg tablet 25 mg PO BID 09/13/19 [History Confirmed 04/02/22] cholecalciferol (vitamin D3) 25 mcg (1,000 unit) tablet (Vitamin D3) 25 mcg PO QAM 09/13/19 [History Confirmed 04/02/22] cyanocobalamin (vitamin B-12) 1,000 mcg tablet (Vitamin B-12) 1,000 mcg PO QDL 09/13/19 [History Confirmed 04/02/22] digoxin 125 mcg (0.125 mg) tablet (Digitek) 125 mcg PO QDL 09/13/19 [History Confirmed 04/02/22] food supplemt, lactose-reduced (Protein Nutritional Shake oral liquid) 1 ea PO 2XWK 09/13/19 [History Confirmed 04/02/22] metformin 500 mg tablet,extended release 24 hr 1,000 mg PO BID 09/13/19 [History Confirmed 04/02/22] metronidazole 0.75 % topical cream 1 applic topical BID 09/13/19 [History Confirmed 04/02/22] psyllium husk 3.4 gram/5.4 gram oral powder (Metamucil) 1 tbsp PO HS 09/13/19 [History Confirmed 04/02/22] sacubitril 97 mg-valsartan 103 mg tablet (Entresto) 1 tab PO BID 09/13/19 [History Confirmed 04/02/22] spironolactone 25 mg tablet 12.5 mg PO QAM 09/13/19 [History Confirmed 04/02/22] torsemide 5 mg tablet 5 mg PO Q3D 09/13/19 [History Confirmed 04/02/22] triamcinolone acetonide 0.1 % topical cream 1 applic topical BID PRN Rash 09/13/19 [History Confirmed 04/02/22] ezetimibe 10 mg tablet 10 mg PO HS 03/22/22 [History Confirmed 04/02/22] rosuvastatin 20 mg tablet (Crestor) 20 mg PO HS 03/22/22 [History Confirmed 04/02/22] Wheeled Walker #1 ea 03/25/22 [Rx Confirmed 03/25/22] Shower Chair #1 ea 03/27/22 [Rx] Roberto Hose #1 ea 03/27/22 [Rx] Wheeled Walker #1 ea 03/27/22 [Rx] acetaminophen 500 mg capsule 1,000 mg PO TID Pain 30 days #180 caps 03/31/22 [Rx Confirmed 04/02/22] aspirin 81 mg tablet,delayed release (Kandace Low Dose Aspirin) 81 mg PO BID 45 days #90 tabs 03/31/22 [Rx Confirmed 04/02/22] ketorolac 10 mg tablet 10 mg PO Q6 Pain 5 days #20 tabs 03/31/22 [Rx Confirmed 04/02/22] ondansetron HCl 4 mg tablet 4 mg PO Q6 PRN nausea #20 tabs 03/31/22 [Rx Confirmed 04/02/22] sennosides 8.6 mg-docusate sodium 50 mg tablet (Senokot-S) 1 tab-cap PO DAILY #14 tabs 03/31/22 [Rx Confirmed 04/02/22] tramadol 50 mg tablet 50 - 100 mg PO Q6H PRN pain #40 tabs 03/31/22 [Rx Confirmed 04/02/22] Home Medications Acetaminophen (Acetaminophen 500 Mg Tab) 1,000 mg PO PREOP [facility] Stop: 04/02/22 18:00 Last Admin: 04/02/22 05:49 Dose: 1,000 mg Acetaminophen (Acetaminophen 500 Mg Tab) 1,000 mg PO Q8 [facility] Stop: 05/02/22 13:59 Al Hydrox/Mg Hydrox/Simethicone (Aluminum/Magnesium Susp 30 Ml Udc) 15 ml PO Q4H PRN PRN Reason: Heartburn Stop: 05/02/22 10:09 Ascorbic Acid (Ascorbic Acid 500 Mg Tab) 500 mg PO BIDM [facility] Stop: 05/02/22 16:59 Aspirin (Aspirin 81 Mg Ectab) 81 mg PO BID [facility] Stop: 05/02/22 11:29 Bisacodyl (Bisacodyl 10 Mg Supp) 10 mg IA DAILY PRN PRN Reason: Constipation Stop: 05/02/22 10:09 Carvedilol (Carvedilol 25 Mg Tab) 25 mg PO BID [place] Stop: 05/02/22 11:29 Celecoxib (Celebrex 200 Mg Cap) 200 mg PO PREOP [place] Stop: 04/02/22 18:00 Last Admin: 04/02/22 05:49 Dose: 200 mg Cyanocobalamin (Cyanocobalamin (B-12) 500 Mcg Tablet) 1,000 mcg PO QDL [facility] Stop: 05/02/22 11:29 Digoxin (Digoxin 0.125 Mg Tab) 0.125 mg PO QDL [facility] Stop: 05/02/22 11:29 Diphenhydramine HCl (Diphenhydramine Capsule 25 Mg Cap) 25 mg PO Q8H PRN PRN Reason: Itching Stop: 05/02/22 10:09 Docusate Sodium (Docusate Sodium 100 Mg Cap) 100 mg PO BID [place] Stop: 05/02/22 10:09 Ezetimibe (Ezetimibe 10 Mg Tablet) 10 mg PO HS [facility] Stop: 05/02/22 20:59 Famotidine (Famotidine 20 Mg Tab) 20 mg PO PREOP [place] Stop: 04/02/22 18:00 Last Admin: 04/02/22 05:49 Dose: 20 mg Hydromorphone HCl (Hydromorphone Inj 0.5 Mg/0.5 Ml Syr) 0.5 mg IV Q4H PRN PRN Reason: Pain or Pre PT Stop: 04/16/22 10:09 Lactated Ringer's (Lr) 1,000 mls @ 15 mls/hr IV .Q24H [facility] Stop: 04/03/22 05:59 Last Infusion: 04/02/22 07:00 Dose: Infused Lactated Ringer's (Lr) 1,000 mls @ 60 mls/hr IV .[id number] [facility] Stop: 04/02/22 22:39 Last Admin: 04/02/22 05:48 Dose: Not Given Cefazolin Sodium (Ancef 2000mg) 2,000 mg in 15 mls @ 3.75 mls/min IV PREOP [facility]X; Protocol Stop: 04/02/22 18:00 Last Admin: 04/02/22 07:14 Dose: 3.75 mls/min Tranexamic Acid (Tranexamic Acid / 0.7% Nacl) 1,000 mg in 100 mls @ 600 mls/hr IV TODAY@0600 [facility] Stop: 04/02/22 18:00 Last Infusion: 04/02/22 10:38 Dose: Infused Sodium Chloride (Nss 1000ml) 1,000 mls @ 80 mls/hr IV .[id number] [facility] Stop: 04/03/22 06:00 Cefazolin Sodium (Ancef 2000mg) 2,000 mg in 15 mls @ 3.75 mls/min IV Q8H [facility]; Protocol Stop: 04/02/22 23:03 Tranexamic Acid (Tranexamic Acid / 0.7% Nacl) 1,000 mg in 100 mls @ 600 mls/hr IV Q6H [facility] Stop: 04/02/22 15:09 Ketorolac Tromethamine (Ketorolac 30 Mg/Ml Vial) 30 mg IV Q6H [facility] Stop: 04/04/22 04:11 Magnesium Hydroxide (Magnesium Hydroxide Susp 30 Ml Udc) 30 ml PO Q6H PRN PRN Reason: Constipation Stop: 05/02/22 10:09 Metoclopramide HCl (Metoclopramide Hcl 10 Mg Tablet) 10 mg PO PREOP [facility] Stop: 04/02/22 18:00 Last Admin: 04/02/22 05:49 Dose: 10 mg Metoclopramide HCl (Metoclopramide Hcl Inj 5 Mg/Ml 2 Ml Vial) 10 mg IV Q6H PRN PRN Reason: Nausea And Vomiting Stop: 05/02/22 10:09 Miscellaneous (Scopolamine Check Patch Placement) 1 each N/A QS [facility] Stop: 04/05/22 07:59 Miscellaneous (Scopolamine Remove Transderm Patch) 1 each N/A ONE ONE Stop: 04/05/22 08:01 Miscellaneous Information (Pharmacy Glycemic Mgmt Consult) 1 each N/A UD PRN PRN Reason: Consult Stop: 05/02/22 10:09 Multivitamins (Multivitamin Tab) 1 tab PO QAM [facility] Stop: 05/02/22 10:09 Naloxone HCl (Naloxone Hcl 0.4 Mg/1 Ml Vial/Carp) 0.1 mg IV Q5M PRN PRN Reason: Oversedation/Resp Depression Stop: 05/02/22 10:09 Non-Formulary Medication (Acetaminophen) 1,000 mg PO TID [facility] Stop: 05/02/22 10:09 Non-Formulary Medication (Food Supplemt, Lactose-Reduced [Protein Nutritional Shake]) 1 each PO 2XWK [facility] Stop: 05/02/22 10:09 Non-Formulary Medication (Metronidazole) 1 appln TOP BID [facility] Stop: 05/02/22 10:09 Non-Formulary Medication (Psyllium Husk [Metamucil]) 1 tbs PO HS [facility] Stop: 05/02/22 20:59 Non-Formulary Medication (Torsemide) 5 mg PO Q3D [facility] Stop: 05/02/22 10:09 Ondansetron HCl (Ondansetron Inj 2 Mg/Ml 2 Ml Vial) 4 mg IV Q6H PRN PRN Reason: Nausea And Vomiting Stop: 05/02/22 10:09 Rosuvastatin Calcium (Rosuvastatin Calcium 20 Mg Tab) 20 mg PO HS [facility] Stop: 05/02/22 20:59 Sacubitril/Valsartan (Valsartan/Sacubitril 103/97mg Tab) 1 tab PO BID [facility] Stop: 05/02/22 11:29 Scopolamine (Scopolamine 1 Mg Tdsy) 1 mg TD PREOP [facility] Stop: 04/02/22 18:00 Last Admin: 04/02/22 05:49 Dose: 1 mg Senna/Docusate Sodium (Docusate Sodium/Senna 50/8.6mg Tab) 1 tab PO DAILY [facility] Stop: 05/02/22 10:09 Sennosides (Senna 8.6 Mg Tab) 17.2 mg PO HS [facility] Stop: 05/02/22 20:59 Spironolactone (Spironolactone 12.5 Mg Tab) 12.5 mg PO QAM [facility] Stop: 05/02/22 11:29 Tramadol HCl (Tramadol Hcl 50 Mg Tablet) 50 - 100 mg PO Q6H PRN PRN Reason: pain Stop: 05/02/22 10:09 Triamcinolone Acetonide (Triamcinolone Acet 0.1% Cr 15 Gm Tube) 1 appln TOP BID PRN PRN Reason: Rash Stop: 05/02/22 10:09 Vitamin D (Cholecalciferol 1,000 Units 25 Mcg Tab) 25 units PO QAM [facility] Stop: 05/02/22 11:29
--- NOTE | 2022-04-02 10:57 | XRay Report ---
XR hip 1V RT w pelvis CLINICAL HISTORY: Postoperative evaluation. COMPARISON: Right hip radiographs March 25, 2022. FINDINGS: Alignment of the total right hip arthroplasty is anatomic. No periprosthetic fracture or u nexpected radiopaque foreign body. There are skin bay. Two acetabular screws are in place. IMPRESSION: Expected findings following total right hip arthroplasty. ACT 112: Negative or not required by law. Electronically signed by: Romel Feldman M.D. 04/02/2022 10:55 AM
[2022-04-02] MEDS ORDERED: CHOLECALCIFEROL 1,000 UNITS 25 MCG TAB PO SCH (11:30)
[2022-04-02] MEDS ORDERED: CARBOHYDRATES FOR HYPOGLYCEMIA PO PRN (11:30)
[2022-04-02] MEDS ORDERED: GLUCOSE 10 TAB/TUBE PO PRN (11:30)
[2022-04-02] MEDS ORDERED: KETOROLAC 30 MG/ML VIAL IV SCH (11:30)
[2022-04-02] MEDS ORDERED: carvediloL 25 MG TAB PO SCH (11:30)
[2022-04-02] MEDS ORDERED: GLUCAGON FOR INJ 1 MG VIAL SQ PRN (11:30)
[2022-04-02] MEDS ORDERED: DEXTROSE 50% 50 ML SYRINGE IV PRN (11:30)
[2022-04-02] MEDS ORDERED: VALSARTAN/SACUBITRIL 103/97MG TAB PO SCH (11:30)
[2022-04-02] MEDS ORDERED: GLUCOSE 40% GEL 15 GM TUBE PO PRN (11:30)
[2022-04-02] MEDS: SODIUM CHLORIDE 0.9% 1000ML 1,000 ML IV SCH ×2 (11:32→22:58)
[2022-04-02] MEDS: DIGOXIN 0.125 MG TAB PO SCH (11:32)
[2022-04-02] MEDS: DOCUSATE SODIUM 100 MG CAP PO SCH ×2 (11:35→20:17)
[2022-04-02] MEDS: SPIRONOLACTONE 12.5 MG TAB PO SCH (11:36)
--- NOTE | 2022-04-02 12:46 | Anesthesiology Progress Note ---
Date of Service April 02, 2022 Anesthesia Post Procedure Vital Signs Vital Signs: Temp Pulse Pulse Resp BP Pulse Ox O2 Del Method 04/02/22 12:03 97.7 F 61 16 121/77 94 Room Air 04/02/22 11:00 97.5 F L 57 L 16 113/73 94 Room Air 04/02/22 10:30 97.5 F L 55 L 16 112/71 94 Room Air 04/02/22 09:50 53 L 17 114/68 96 Room Air 04/02/22 09:35 97.5 F L 52 L 15 103/65 94 Room Air 04/02/22 09:25 58 L 15 110/62 94 Room Air 04/02/22 09:15 97.5 F L 57 L 13 111/62 96 Room Air 04/02/22 09:05 59 L 16 106/58 L 92 Room Air 04/02/22 08:55 61 15 98/63 L 95 Oxymask 04/02/22 08:45 98.1 F 67 14 99/52 L 95 Oxymask 04/02/22 05:34 98.2 F 76 20 132/81 96 Room Air 04/02/22 05:34 Room Air O2 Flow Rate 04/02/22 12:03 04/02/22 11:00 04/02/22 10:30 04/02/22 09:50 04/02/22 09:35 04/02/22 09:25 04/02/22 09:15 04/02/22 09:05 04/02/22 08:55 5 04/02/22 08:45 5 04/02/22 05:34 04/02/22 05:34 Pain Intensity Right Hip: Pain Intensity: 0 Transfer of Care Handoff Completed per policy Notes Mental Status: alert / awake / arousable and participated in evaluation Patient Amnestic to Procedure: Yes Nausea / Vomiting: adequately controlled Pain: adequately controlled Airway Patency, RR, SpO2: stable & adequate BP & HR: stable & adequate Hydration State: stable & adequate Neuraxial Anesthesia: was administered and sensory block is resolving Anesthetic Complications: no major complications apparent and Pt Satisfied with anesthetic care
--- NOTE | 2022-04-02 12:58 | Pharmacy Report ---
Pharmacy Glycemic Short Note 2 - Date of Service April 02, 2022 - Glycemic Short BSG Results (Last 24 hours): 04/02/22 04/02/22 04/02/22 05:45 08:52 12:06 POC Glucose 162 H 137 H 153 H OUTPATIENT ANTIDIABETIC REGIMEN: * Metformin 1gm PO BID * HbA1c: 6.7% (03/27/22) ASSESSMENT: * Ms Santos is a 61yo diabetic female POD 0 s/p R total hip with Dr Goldberg this morning. * BSGs have been stable thus far today. * Novolog initiated on admission for BSG control. Will adjust as indicated. PLAN FOR INPATIENT GLYCEMIC CONTROL: * Hold outpatient oral diabetes medications * Consider resuming Metformin tomorrow, as long as pt is tolerating diet and no contraindications are present. * Basal insulin * none at this time * Bolus insulin * NovoLog per scale ACHS or Q6hrs while NPO * Goal Range: Low 110 mg/dL - High 140 mg/dL * Correction Factor: 30 mg/dL/unit * Nutritional / Prandial insulin per carb ratio of 1 unit per 10 grams CHO consumed
[2022-04-02] MEDS: INSULIN ASPART PER UNIT SC SCH ×3 (13:00→20:48)
[2022-04-02] MEDS: MULTIVITAMIN TAB PO SCH (13:10)
[2022-04-02] MEDS: CYANOCOBALAMIN (B-12) 500 MCG TABLET PO SCH (13:10)
[2022-04-02] MEDS: CHOLECALCIFEROL 1,000 UNITS 25 MCG TAB PO SCH (13:10)
[2022-04-02] MEDS: ASPIRIN 81 MG ECTAB PO SCH ×2 (13:10→20:18)
[2022-04-02] MEDS ORDERED: Nursing to Pharmacy Communication SCH (13:30)
[2022-04-02] MEDS: ACETAMINOPHEN 500 MG TAB PO SCH ×2 (14:19→22:56)
--- NOTE | 2022-04-02 14:37 | Progress Notes ---
DATE OF SERVICE: 04/02/2022. SUBJECTIVE: A 61-year-old female postoperative from a right hip replacement. She is doing pretty we ll. Resting comfortably. Denies any significant pain. Just starting to get the feeling back in her legs. OBJECTIVE: VITAL SIGNS: Temperature 36.5. Vital signs are stable. PHYSICAL EXAMINATION: GENERAL: Shows a pleasant middle-aged female. She is sitting up in bed and was sleeping when I went in to visit her. She was easily awoken. EXTREMITIES: Examination of the right hip and leg reveals the leg lengths to be equal. Dressing is clean, dry and intact. Thigh is soft and supple. She is just starting to be able to move her feet. She has a weak dorsiflexion and plantarflexion currently, but seems to be returning. X-RAYS: X-rays of the right hip from recovery room are reviewed. It shows right uncemented hip repl acement. Components looked to be in good position. No signs of problems. ASSESSMENT: A 61-year-old female with multiple medical comorbidities including nonischemic cardiomyo chalino postop from a right hip replacement, doing well. Her pain is controlled. Spinal still in effe ct. Medically, she seems quite stable and euvolemic. PLAN: 1. DVT prophylaxis includes thigh-high TEDs, SCDs, and aspirin twice a day. 2. PT, OT, weightbear as tolerated. Right total hip protocol. 3. Pain control, doing well with current pain regimen. We will obviously have to adjust meds as her spinal wears off. 4. Nonischemic cardiomyopathy. We will have the [facility] crab meat processor follow her as needed and ass ist in fluid management. 5. Disposition: She is planning to be discharged to home with some home health once adequately geeta haritha and passes through therapy. Job ID: [id number]
[2022-04-02] MEDS ORDERED: TRANEXAMIC ACID / 0.7% NACL 1,000 MG/100 ML BAG IV SCH (15:00)
[2022-04-02] MEDS: Scopolamine CHECK PATCH PLACEMENT SCH (15:43)
[2022-04-02] MEDS: ceFAZolin 2000MG 2,000 MG/15 ML SYR IV SCH ×2 (16:44→22:56)
[2022-04-02] MEDS: ASCORBIC ACID 500 MG TAB PO SCH (17:24)
[2022-04-02] MEDS: carvediloL 25 MG TAB PO SCH (17:25)
[2022-04-02] MEDS: VALSARTAN/SACUBITRIL 103/97MG TAB PO SCH (20:17)
[2022-04-02] MEDS ORDERED: EZETIMIBE 10 MG TABLET PO SCH (21:00)
[2022-04-02] MEDS ORDERED: PSYLLIUM or GUAR GUM FIBER POWDER PACKET PO SCH (21:00)
[2022-04-02] MEDS ORDERED: ROSUVASTATIN CALCIUM 20 MG TAB PO SCH (21:00)
[2022-04-02] MEDS ORDERED: SENNA 8.6 MG TAB PO SCH (21:00)
[2022-04-03] MEDS ORDERED: diphenhydrAMINE Capsule 25 MG CAP PO PRN (00:59)
[2022-04-03] MEDS ORDERED: ONDANSETRON INJ 2 MG/ML 2 ML VIAL IV PRN (00:59)
[2022-04-03] MEDS ORDERED: METOCLOPRAMIDE HCL INJ 5 MG/ML 2 ML VIAL IV PRN (00:59)
[2022-04-03] MEDS ORDERED: traMADol HCL 50 MG TABLET PO PRN (00:59)
[2022-04-03] MEDS ORDERED: HYDROmorphone INJ 0.5 MG/0.5 ML SYR IV PRN (00:59)
[2022-04-03] MEDS: KETOROLAC 30 MG/ML VIAL IV SCH ×3 (01:14→12:31)
[2022-04-03] MEDS: Scopolamine CHECK PATCH PLACEMENT SCH ×2 (01:14→09:37)
[2022-04-03] MEDS: ACETAMINOPHEN 500 MG TAB PO SCH (06:03)
[2022-04-03 07:44] LABS: Basophils # (auto) 0.03 K/uL (0-0.2); Basophils % (auto) 0.4 %; Eosinophils # (auto) 0.09 K/uL (0-0.50); Eosinophils % (auto) 1.2 %; Hematocrit (blood only) 31.8 % (34.1-44.9); Hemoglobin 10.6 g/dl (12.0-16.0); Immature Granulocytes # (auto) 0.04 K/uL (0.00-0.02); Immature Granulocytes % (auto) 0.5 %; Lymphocytes # (auto) 1.51 K/uL (1.2-3.4); Lymphocytes % (auto) 20.5 %; Mean Corpuscular Hemoglobin 30.5 pg (25.0-34.0); Mean Corpuscular Hgb Conc 33.3 g/dL (32.0-36.0); Mean Corpuscular Volume 91.4 fL (80.0-100.0); Mean Platelet Volume 9.3 fL (9.4-12.3); Monocytes # (auto) 0.82 K/uL (0.24-0.82); Monocytes % (auto) 11.1 %; Neutrophils # (auto) 4.87 K/uL (1.4-6.5); Neutrophils % (auto) 66.3 %; Platelet Count 203 K/uL (130-400); RDW Coefficient of Variation 13.1 % (11.5-14.5); RDW Standard Deviation 43.8 fL (36.4-46.3); Red Blood Count 3.48 M/uL (3.93-5.22); White Blood Count 7.36 K/ul (4.8-10.8)
[2022-04-03 08:17] LABS: BUN Creatinine Ratio 18.3 (10-20); Calcium 8.3 mg/dl (8.5-10.1); Creatinine Clr Calc Pharmacy 107.9 ml/min; Est GFR (Non-African American) 98.4 ml/min; Potassium 4.1 mmol/L (3.5-5.1)
[2022-04-03] MEDS: INSULIN ASPART PER UNIT SC SCH ×2 (08:53→12:30)
[2022-04-03] MEDS: CHOLECALCIFEROL 1,000 UNITS 25 MCG TAB PO SCH (08:54)
[2022-04-03] MEDS: ASCORBIC ACID 500 MG TAB PO SCH (08:54)
[2022-04-03] MEDS: MULTIVITAMIN TAB PO SCH (08:56)
[2022-04-03] MEDS: SPIRONOLACTONE 12.5 MG TAB PO SCH (08:56)
[2022-04-03] MEDS: carvediloL 25 MG TAB PO SCH (08:56)
[2022-04-03] MEDS: ASPIRIN 81 MG ECTAB PO SCH (08:57)
[2022-04-03] MEDS: DOCUSATE SODIUM 100 MG CAP PO SCH (08:57)
--- NOTE | 2022-04-03 09:41 | Cardiology Progress Note ---
Date of Service April 03, 2022 Assessment & Plan (1) S/P hip replacement: (2) Non-ischemic cardiomyopathy: (3) Biventricular automatic implantable cardioverter defibrillator in situ: (4) Chronic systolic (congestive) heart failure: (5) Hyponatremia: Plan Patient doing well POD 1 right hip replacement. Mild post op anemia noted at 10.6. Monitor. Mild hyponatremia noted, likely due to IV fluids yesterday. Fluids discontinued. Appears euvolemic on exam. Home cardiac meds resumed including, ASA, crestor, zetia, Entresto, carvedilol, torsemide and spironolactone. Incentive spirometry encouraged. DVT proph with ASA 81 mg BID and compression stockings. Ambulation encouraged. Case discussed with Dr. Le. Will follow. Admission and Anticipated Discharge Date Admission Date: April 02, 2022 Supervising Physician Co-Signing Physician Notes Patient seen exam at the bedside. Admitted for elective hip surgery. No complications reported. Feeling well postoperatively. Denies chest pain or shortness of breath. Participating in physical therapy. Mild right hip discomfort noted. PE: VSS. Gen: NAD, AAO x 3. Heart: Regular rhythm, normal S1-S2. No murmur. Lungs: Clear bilateral, no rales, rhonchi, wheeze. Extremities: + Compression stockings bilateral, no edema. A/P: Agree with above PA-C history, physical exam, assessment and plan. Continue cardiac medications including aspirin, Crestor, Zetia, Entresto, carvedilol, torsemide and Aldactone. Repeat BMP in AM if patient remains in hospital. Otherwise, repeat BMP can be performed in 2-3 days in the outpatient setting. Subjective Patient resting in chair out of bed. Was ambulating in hallways this morning with PT. Minimal right hip pain. Feeling well. Denies chest pain or SOB. No fever or chills. No orthopnea, PND or increased edema. Compression stockings in place. Review of Systems Review of Systems: All systems reviewed & are unremarkable except as noted in HPI & below Physical Exam Constitutional: WD/WN, vitals as above well developed; no acute distress Respiratory: normal respiratory effort, lungs clear to auscultation Cardiovascular: Rate/Rhythm: regular rate and regular rhythm Heart Sounds: normal S1 and normal S2; no murmur Vessels: no JVD Extremities: no edema Neurologic: PERRL, EOMI, accommodation nl, no face palsy, no dysarthria Psychiatric: A+Ox3, euthymic affect Results & Data ([facility]) Vital Signs (Past 12 Hours) Vital Signs Temp Pulse Pulse Resp BP Pulse Ox O2 Del Method 04/03/22 08:08 36.5 C 80 16 107/69 94 Room Air 04/03/22 03:24 36.8 C 76 16 95/60 L 92 Room Air 04/03/22 01:15 18 92 04/02/22 22:00 16 91 04/02/22 23:00 16 91 04/03/22 00:15 16 89 L 04/02/22 22:32 37.0 C 76 16 112/71 94 Room Air Laboratory Results CBC 04/03/22 Range/Units 07:00 WBC 7.36 (4.8-10.8) K/ul RBC 3.48 L (3.93-5.22) M/uL Hgb 10.6 L (12.0-16.0) g/dl Hct 31.8 L (34.1-44.9) % Plt Count 203 (130-400) K/uL Neut # (Auto) 4.87 (1.4-6.5) K/uL Lymph # (Auto) 1.51 (1.2-3.4) K/uL Bourbon # (Auto) 0.82 (0.24-0.82) K/uL Eos # (Auto) 0.09 (0-0.50) K/uL Baso # (Auto) 0.03 (0-0.2) K/uL Comprehensive Metabolic Panel 04/03/22 Range/Units 07:00 Sodium 132 L (136-145) mmol/L Potassium 4.1 (3.5-5.1) mmol/L Chloride 102 (98-107) mmol/L Carbon Dioxide 23 (21-32) mmol/L BUN 11 (6-23) mg/dl Creatinine 0.60 (0.6-1.2) mg/dl Glucose 143 H (70-99(Fasting)) mg/dl Calcium 8.3 L (8.5-10.1) mg/dl Intake and Output 04/02/22 04/03/22 04/03/22 22:59 06:59 14:59 Intake Total 1014.667 / 1964.667 Output Total 1800 / 2480 500 / 2480 Balance -785.333 / -515.333 -500 / -515.333 Intake: IV 1014.667 / 1114.667 Sodium Chloride 0.9% 1000ML 1, 914.667 / 914.667 000 ml @ 80 mls/hr IV .[id number] [facility] Rx#:[id number] Tranexamic Acid / 0.7% NaCl 1, 100 / 100 000 mg In 100 ml @ 600 mls/hr IV Q6H [facility] Rx#:[id number] Output: Urine Amount (Catheter) 1800 / 2380 500 / 2380 Koo/Indwelling 1800 / 2380 500 / 2380 Diagnostic Findings Laboratory Results WBC 7.36 K/ul (4.8-10.8) 04/03/22 07:00 RBC 3.48 M/uL (3.93-5.22) L 04/03/22 07:00 Hgb 10.6 g/dl (12.0-16.0) L 04/03/22 07:00 Hct 31.8 % (34.1-44.9) L 04/03/22 07:00 MCV 91.4 fL (80.0-100.0) 04/03/22 07:00 MCH 30.5 pg (25.0-34.0) 04/03/22 07:00 MCHC 33.3 g/dL (32.0-36.0) 04/03/22 07:00 RDW Std Deviation 43.8 fL (36.4-46.3) 04/03/22 07:00 RDW Coeff of Lena 13.1 % (11.5-14.5) 04/03/22 07:00 Plt Count 203 K/uL (130-400) 04/03/22 07:00 MPV 9.3 fL (9.4-12.3) L 04/03/22 07:00 Immature Gran % (Auto) 0.5 % 04/03/22 07:00 Neut % (Auto) 66.3 % 04/03/22 07:00 Lymph % (Auto) 20.5 % 04/03/22 07:00 Bourbon % (Auto) 11.1 % 04/03/22 07:00 Eos % (Auto) 1.2 % 04/03/22 07:00 Baso % (Auto) 0.4 % 04/03/22 07:00 Neut # (Auto) 4.87 K/uL (1.4-6.5) 04/03/22 07:00 Lymph # (Auto) 1.51 K/uL (1.2-3.4) 04/03/22 07:00 Bourbon # (Auto) 0.82 K/uL (0.24-0.82) 04/03/22 07:00 Eos # (Auto) 0.09 K/uL (0-0.50) 04/03/22 07:00 Baso # (Auto) 0.03 K/uL (0-0.2) 04/03/22 07:00 Immature Gran # (Auto) 0.04 K/uL (0.00-0.02) H 04/03/22 07:00 Sodium 132 mmol/L (136-145) L 04/03/22 07:00 Potassium 4.1 mmol/L (3.5-5.1) 04/03/22 07:00 Chloride 102 mmol/L (98-107) 04/03/22 07:00 Carbon Dioxide 23 mmol/L (21-32) 04/03/22 07:00 Anion Gap 7 (3-11) 04/03/22 07:00 BUN 11 mg/dl (6-23) 04/03/22 07:00 Creatinine 0.60 mg/dl (0.6-1.2) 04/03/22 07:00 Est Cr Clr Drug Dosing 107.9 ml/min 04/03/22 07:00 Est GFR ( Amer) 114.0 ml/min 04/03/22 07:00 Est GFR (Non-Af Amer) 98.4 ml/min 04/03/22 07:00 BUN/Creatinine Ratio 18.3 (10-20) 04/03/22 07:00 Glucose 143 mg/dl (70-99(Fasting)) H 04/03/22 07:00 POC Glucose 159 mg/dl (70-99) H 04/03/22 08:15 Calcium 8.3 mg/dl (8.5-10.1) L 04/03/22 07:00 SARS-CoV-2, RNA, NAAT NEGATIVE (NEGATIVE) 04/02/22 Unknown Impressions Hip/Pelvis X-Ray 04/02/22 08:49 XR hip 1V RT w pelvis CLINICAL HISTORY: Postoperative evaluation. COMPARISON: Right hip radiographs March 25, 2022. FINDINGS: Alignment of the total right hip arthroplasty is anatomic. No periprosthetic fracture or unexpected radiopaque foreign body. There are skin bay. Two acetabular screws are in place. IMPRESSION: Expected findings following total right hip arthroplasty. ACT 112: Negative or not required by law. Electronically signed by: Romel Feldman M.D. 04/02/2022 10:55 AM
[2022-04-03] MEDS: DIGOXIN 0.125 MG TAB PO SCH (12:26)
[2022-04-03] MEDS: CYANOCOBALAMIN (B-12) 500 MCG TABLET PO SCH (12:26)
[2022-04-03] MEDS: VALSARTAN/SACUBITRIL 103/97MG TAB PO SCH (12:27)
--- NOTE | 2022-04-03 13:31 | Progress Notes ---
DATE OF SERVICE: 04/03/2022. SUBJECTIVE: A 61-year-old white female postoperative day 1 from a right hip replacement. She is doi ng quite well. Rates her worst pain is a 3. No chest pain or shortness of breath. Therapy went wel l. She is anxious to get home. OBJECTIVE: VITAL SIGNS: Temperature 37.0. Vital signs are stable. PHYSICAL EXAMINATION: GENERAL: Shows a pleasant middle-aged female. She is sitting up in bed and talking to her . She looks comfortable. EXTREMITIES: Examination of the right hip reveals dressing to be clean, dry and intact. Leg lengths are equal. Hip is located. She is neurologically intact. LABORATORY DATA: Hemoglobin 10.6. Hematocrit 31.8. Electrolytes are stable. ASSESSMENT: A 61-year-old white female postoperative day 1 from right hip replacement, doing well. Pain is controlled. She is neurologically intact. Hip is located. Therapy went well. Her medical status appears stable and optimized. PLAN: 1. DVT prophylaxis includes thigh-high TEDs, SCDs, and aspirin twice a day. 2. PT, OT, weightbear as tolerated. Right total hip protocol. 3. Pain control, doing okay with current pain regimen. 4. Medical management. She seems to be stable from the cardiac standpoint. 5. Disposition: Plan to discharge to home with some home health likely today. Job ID: [id number]
[2022-04-04] MEDS ORDERED: TORSEMIDE 10 MG TAB PO SCH (09:00)
--- NOTE | 2022-04-17 12:45 | Discharge Summary ---
Date of Service April 17, 2022 Principal Diagnosis Same as "Discharge Diagnosis" noted below under Discharge Instructions. Discharge Data Consultations 04/02/22 10:10 Consult Cardiology Routine Procedures Performed Operation Date: 04/02/22 07:00 Actual Procedures p Right Total Hip Arthroplasty--Uncemented(Right) - Anton Goldberg MD Hospital Course (1) S/P hip replacement: This is a 61 yo female patient admitted on 04/02/22 and underwent a right total hip arthroplasty. She tolerated the procedure well and there were no complications. Transferred to PACU post op and later to the orthopedic floor. She was given ancef for antibiotic prophylaxis. She was also given LETY stockings, SCDs, and aspirin for DVT prophylaxis. Hemoglobin, Hematocrit, and vital signs were monitored during the hospital stay and remained stable. Did not require blood transfusions. There were no complications during the hospital stay. By POD#1 the patient was tolerating a regular diet, pain well controlled with oral medications, and was participating in PT. On POD#1 the patient was di scharged to home with home health care. She was given printed discharge instructions including prescriptions for tylenol, aspirin, toradol, and oxycodone. Continue PT, weightbearing as tolerated. Continue LETY stockings. Follow up in 2 weeks post op or sooner if their are problems. PG Care Time/CCT Total # of Minutes Spent Total Time Spent with Patient: Total time spent is greater than 50% in coordination of care (as documented) at patient's floor/unit and/or counseling patient: Discharge Plan Discharge Items Patient Disposition: Home - Home Health Services Reason For Visit: Right Hip Osteoarthritis Discharge Diagnosis: Right Hip Replacement Activity: Per Instructions section Activity Comment: Weightbear as tolerated obeying hip precautions at all times Weightbearing: Full weightbearing Weightbearing Comment: Weightbear as tolerated obeying hip precautions at all times Non-emergency contact: Surgeon Call non-emergency contact if: you have any medication questions Follow-up/Referrals: Lenin Hawkins MD [Primary Care Provider] - Diet: Regular Addtl Attending Provider Instructions: ACTIVITY RECOMMENDATIONS: Physical Therapy: * Aggressive physical therapy is not usually needed. You will learn to take care of yourself safely and walk. * Follow the "Hip Precautions Instructions." * In some cases, the social media marketer at the hospital will arrange to have a therapist come to your house for the first couple of weeks to help you learn these skills. * You need to practice on your own or with the help of a family member as needed. * When you learn these skills, most of the therapy can be done on your own. Home Exercise: * You were shown a series of exercises in the hospital. Do these exercises three to four times each day including the exercises you were shown in physical therapy. Walking: * Get up and walk several times each day. For the first four weeks, try not to stand or walk for more than one hour at a time. If you do stand or walk for more than one hour, you will not hurt anything, but your leg will likely swell. * As you feel comfortable, you may change from the walker or crutches to a cane and then to independent walking. MEDICATIONS: New Medicine: * You will likely be taking one or more of these medicines: 1. Tramadol - Take, as directed, when you need it, every six hours to control your pain. 2. Aspirin - Thins your blood to lessen the chance of forming a blood clot. * The most common side effects of pain medicine and iron are nausea and constipation. If nausea or constipation is too much of a problem or if you have any questions about your new medicines or doses, call [facility] at [phone]. We will try to help you manage these issues. "VERY IMPORTANT TO READ AND REVIEW" Pain: * The immediate post-operative period after hip replacement surgery is often quite painful. * You are given a prescription for pain medicine. You should take it, as directed, when you need it, especially before physical therapy and before going to bed. Pain that interferes with sleep is very common and can last several months. * You will likely need pain medicine for the first two to four weeks. It will not stop all of the pain. The pain will lessen and as you feel better, you may change to milder pain medicine such as Tylenol. * The most common side effects of pain medicine are nausea and constipation, so don't take more than you need. SPECIAL CARE INSTRUCTIONS: TEDs/Elastic Stockings: * The white elastic stockings help limit swelling and prevent blood clots from forming in your legs. The more you wear them, the more they work. * Wear them for six weeks. Incision Site Care: * Remove dressing postoperative day 2 and then shower. Keep direct shower pressure off the incision site. * After showering, cover bay with dry gauze and change daily or more frequently if the dressing is getting saturated with drainage. * May completely stop using bandage if wound is dry and no drainage * Bay are removed between 2 and 3 weeks post-op. If your follow-up appointment is made before 2 weeks, please have your appointment re- scheduled. It is too early to remove the bay. Prevention of Infection: * Take antibiotics one hour before any dental cleaning, dental work, urological procedure, gastrointestinal procedure or any invasive surgery in order to prevent your new joint from getting infected. * You may get the antibiotics from the doctor performing the procedure or you may call our office at before and we will call in a prescription to the pharmacy of your choice. Things to Watch For: * Drainage from the incision site that occurs more than one week after your surgery. * Severely increased leg pain or swelling. * Increased redness at the incision site. * Fever above 102 degrees Fahrenheit. * Unusual chest pain or shortness of breath. * Unusual pain or burning with urination. Call [facility] at with any of the above problems or if you have any questions about your medicines or recovery. FOLLOW UP VISIT: Make an appointment to see your doctor for approximately two weeks after surgery for a progress check and staple removal by calling the office at . Pending Studies at Discharge: No Stand-Alone Forms: My [facility] To8to, Smoking Cessation Medications and DC Order Prescriptions: Continued (DME) Wheeled Walker [facility] See Rx Instructions .MEDSUPPLY Qty: 1 0RF Rx Instructions: As directed (DME) Shower Chair [facility] See Rx Instructions .Route Qty: 1 0RF Rx Instructions: As directed (DME) Lety Spears [facility] See Rx Instructions .MEDSUPPLY Qty: 1 0RF Rx Instructions: As directed tramadol 50 mg tablet 50 - 100 mg PO Q6H PRN (Reason: pain) Qty: 40 0RF Rx Instructions: Take as needed for Pain. ondansetron HCl 4 mg tablet 4 mg PO Q6 PRN (Reason: nausea) Qty: 20 1RF ketorolac 10 mg tablet 10 mg PO Q6 5 Days Qty: 20 0RF Rx Instructions: Take 4 times per day with food for 5 days to decrease pain and swelling. acetaminophen 500 mg capsule 1,000 mg PO TID 30 Days Qty: 180 0RF Rx Instructions: Take 3 times per day to lessen pain. aspirin [Kandace Low Dose Aspirin] 81 mg tablet,delayed release (DR/EC) 81 mg PO BID 45 Days Qty: 90 0RF Rx Instructions: Take to prevent blood clots. sennosides-docusate sodium [Senokot-S] 8.6-50 mg tablet 1 tab-cap PO DAILY Qty: 14 0RF Rx Instructions: Take daily to prevent constipation (DME) Wheeled Walker Misc See Rx Instructions .MEDSUPPLY Qty: 1 0RF Rx Instructions: As directed carvedilol 25 mg Tablet 25 mg PO BID cyanocobalamin (vitamin B-12) [Vitamin B-12] 1,000 mcg Tablet 1,000 mcg PO QDL triamcinolone acetonide 0.1 % Cream 1 applic TOPICAL BID PRN (Reason: Rash) spironolactone 25 mg Tablet 12.5 mg PO QAM torsemide 5 mg Tablet 5 mg PO Q3D Label Comments: per pt takes 1 tab every 3 days metronidazole 0.75 % Cream 1 applic TOPICAL BID digoxin [Digitek] 125 mcg (0.125 mg) Tablet 125 mcg PO QDL metformin 500 mg Tablet Extended Release 24 Hr 1,000 mg PO BID Label Comments: takes at lunch and dinner cholecalciferol (vitamin D3) [Vitamin D3] 25 mcg (1,000 unit) Tablet 25 mcg PO QAM Entresto 97-103 mg Tablet 1 tab PO BID Label Comments: takes at lunch and hs Metamucil 3.4 gram/5.4 gram Powder 1 tbsp PO HS Protein Nutritional Shake Liquid 1 ea PO [id number] Label Comments: takes in the am 3x a week ezetimibe 10 mg Tablet 10 mg PO HS rosuvastatin [Crestor] 20 mg Tablet 20 mg PO HS Discharge Orders: Discharge Order (Routine); Ordered 04/03/22 Ordered By: Anton Dela Cruz/Other Patient Handouts: RICE, Hip Precautions, Hip Replace Home Recovery Admission Data Admit Date/Time: 04/02/22 08:49 Attending Provider: Anton Goldberg Admit Provider: Yusuf,Anton S. Primary Care Provider: Lenin Hawkins Other Providers: Anton Nicholson ; Brooks,Home Health Other Interventions: Discharge Summary Assessment (RN) Last Done: 04/03/22 14:10
== END 2022-04-03 15:05 | disposition home health service (06) ==
LOC: ASU 05:08 → 3E 05:08